=== PATIENT | male | born 1945 | race Caucasian/White ===

== ENCOUNTER → 2019-03-18 08:34 | Outpatient (CLI) | payer OTHER, SELFPAY ==
--- NOTE | 2019-03-18 | DI.CT.S_ITS ---
PROCEDURE: CT ABDOMEN PELVIS WO/W CON INDICATIONS: HEMATURIA TECHNIQUE: Optional 5 mm thick noncontrast images acquired from the diaphragm to the symphysis pubis. After the administration of intravenous contrast, 5 mm thick images acquired from the diaphragm to the symphysis pubis after a 10-minute delay. 2 mm thick coronal and sagittal reformats were then performed of the kidneys and ureters. For radiation dose reduction, the following was used: automated exposure control, adjustment of mA and/or kV according to patient size. COMPARISON: None. FINDINGS: Image quality: Excellent. Lung bases: Lung bases are clear. Heart size is normal. Urinary system: Right kidney: In the medullary portion of the kidney, at the lower pole, is a soft tissue density lesion measuring approximately 1.5 cm which enhances from 30 Hounsfield units to 60 Hounsfield units, possibly representing a small transitional cell carcinoma. No stones or hydronephrosis. Right ureter: Unremarkable. Left kidney: No stone, hydronephrosis, or mass. Left ureter: Unremarkable. Bladder: There is diffuse bladder wall thickening. There are multiple polypoid lesions extending into the lumen of the bladder. Off the left posterior superior wall is a 2.4 cm maximum diameter polypoid lesion. Off the right lateral wall is a 1 cm polypoid lesion. Off the dome, to the right of midline, is a possible 1.4 cm polypoid lesion. There are small bilateral posterior lateral bladder diverticuli. There are at least 3 on the right and one on the left. Other solid organs: Liver is normal in size and enhancement. Gallbladder is unremarkable. Biliary system is non dilated. Pancreas enhances normally. Spleen is normal in size and enhancement. No adrenal nodules. Peritoneum and bowel: Bowel loops demonstrate normal wall thickness and caliber. No free fluid or air. Nodes and vessels: No retroperitoneal or mesenteric adenopathy by size criteria. Aorta and inferior vena cava are normal in size. Abdominal wall: No ventral hernias. Pelvis: No pathologic free pelvic fluid. Small bilateral inguinal hernias containing fat. Prostate is enlarged. Bones: No suspicious bony lesions. No vertebral body compression fractures. IMPRESSION: 1. Question 1.5 cm transitional cell carcinoma of the lower pole of the right kidney. 2. Prostate enlargement, diffuse bladder wall thickening. 3. 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 4. Incidental note made of bilateral bladder diverticuli. Dictated by: Gil Jalloh M.D. on 03/18/2019 at 16:00 Approved by: Gil Jalloh M.D. on 03/18/2019 at 16:25
[2019-03-18 09:08] LABS: Blood Urea Nitrogen 17 mg/dL (9-20); Calcium 9.3 mg/dL (8.4-10.2); Carbon Dioxide 28 mmol/L (22-32); Chloride 103 mmol/L (98-107); Estimated Glomerular Filt Rate > 60.0 mL/min (>60); Glucose 98 mg/dL (80-110); HEMOLYSIS < 15 (0-50); Potassium 4.8 mmol/L (3.4-5.1); Sodium 139 mmol/L (137-145)
== END ==
PROVIDERS: Visit Provider Specialist
DX: R31.0 Gross hematuria (principal); N32.9 Bladder disorder, unspecified; N28.9 Disorder of kidney and ureter, unspecified; N40.0 Benign prostatic hyperplasia without lower urinary tract symptoms; N32.3 Diverticulum of bladder
CPT/HCPCS: 36415; 74178; 80048; Q9967

== ENCOUNTER → 2020-12-29 10:34 | Outpatient (CLI) | payer MEDICARE, OTHER, SELFPAY ==
--- NOTE | 2020-12-29 12:19 | DI.CT.S_ITS ---
PROCEDURE: CT ABDOMEN PELVIS W CON INDICATIONS: Left lower quadrant pain,Other chronic pain TECHNIQUE: After the administration of oral and intravenous contrast, 5 mm thick sections acquired from the diaphragms to the symphysis. 5 mm thick coronal and sagittal reformats were performed. For radiation dose reduction, the following was used: automated exposure control, adjustment of mA and/or kV according to patient size. COMPARISON: None. FINDINGS: Image quality: Excellent. ABDOMEN: Lung bases: Lung bases are clear. Heart size is normal. Solid organs: Liver is normal in size and enhancement. Gallbladder appears normal Biliary system is non-dilated. Pancreas enhances normally. Spleen is normal in size and enhancement. No adrenal nodules. Kidneys are normal in size and enhancement, without hydronephrosis. Peritoneum and bowel: Stomach, small bowel, and colon loops are normal in caliber and wall thickness. No free fluid or air. Nodes and vessels: No retroperitoneal or mesenteric adenopathy. Aorta and inferior vena cava are normal in caliber. Miscellaneous: No ventral hernias. PELVIS: Genitourinary: Bladder wall thickness is increased over the superior bladder margin and posteriorly, associated with what appears to be moderate enlargement of the prostate gland. No bladder calculus is found. Several scattered bladder wall diverticula are present, small in overall size.. Miscellaneous: No inguinal hernias or adenopathy. Bones: No suspicious bony lesions. No vertebral body compression fractures. Note is made of prior left hemipelvis reconstruction with transverse fixation screws and a vertically oriented fixation plate at the iliac bone internally. The superior fixation screw traverses only a thin portion of the iliac bone near the anterior sacroiliac border, and then traverses in the soft tissues in apposition to the external cortex of the iliac bone more posteriorly.. IMPRESSION: A source of current symptomatology is not seen. No visceral herniation is identified. No evidence of visceral trauma. Note is made of previously performed left iliac wing fracture fixation screws and plate. The superior vertically oriented fixation plate margin contains a long fixation screw that penetrates only a small portion of the iliac bone and then extends along the external cortex of the iliac bone more posteriorly into the soft tissues extending to slightly penetrate through the medial left gluteus musculature into the overlying subcutaneous fat. Dictated by: Darnell Allan M.D. on 12/29/2020 at 12:46 Approved by: Darnell Allan M.D. on 12/29/2020 at 12:53
== END ==
PROVIDERS: PCP Family Medicine; Referring Provider Surgery; Visit Provider Surgery
DX: R10.32 Left lower quadrant pain (principal); G89.29 Other chronic pain
CPT/HCPCS: 74177; Q9967

== ENCOUNTER → 2021-02-21 11:41 | Outpatient (CLI) | payer MEDICARE, OTHER, SELFPAY | PROVIDERS: PCP Family Medicine; Visit Provider Specialist | DX: N39.0 Urinary tract infection, site not specified (principal); R33.9 Retention of urine, unspecified; R97.20 Elevated prostate specific antigen [PSA]; Z80.42 Family history of malignant neoplasm of prostate; N52.9 Male erectile dysfunction, unspecified; N40.1 Benign prostatic hyperplasia with lower urinary tract symptoms; R33.8 Other retention of urine | CPT/HCPCS: 51798; 81002; 87077; 87086; 87186; 99214 ==

== ENCOUNTER → 2021-04-12 12:16 | Outpatient (CLI) | payer MEDICARE, OTHER, SELFPAY ==
[2021-04-12 20:43] LABS: COVID19 - ORCAS (NP or Nasal) Negative (Negative)
== END ==
PROVIDERS: PCP Family Medicine; Visit Provider Family Medicine
DX: Z20.822 Contact with and (suspected) exposure to COVID-19 (principal)
CPT/HCPCS: C9803; U0003

== ENCOUNTER → 2021-12-27 10:47 | Outpatient (CLI) | payer MEDICARE, OTHER, SELFPAY | PROVIDERS: PCP Family Medicine; Referring Provider Dermatology MOHS-Micrographic Surgery; Visit Provider Family Medicine | DX: T81.31XA Disruption of external operation (surgical) wound, not elsewhere classified, initial encounter (principal); S81.802A Unspecified open wound, left lower leg, initial encounter; R60.0 Localized edema; Z85.828 Personal history of other malignant neoplasm of skin | CPT/HCPCS: 11042; 93922; 99203; 99213 ==

== ENCOUNTER → 2021-12-28 09:00 | Outpatient (CLI) | payer MEDICARE, OTHER, SELFPAY ==
[2021-12-28 19:07] LABS: Add Manual Diff / Slide Review NO; Basophils Absolute Auto 100 /uL (0-100); Basophils Percent Auto 1.4 % (0-2); Eosinophils Absolute Auto 100 /uL (0-450); Eosinophils Percent Auto 2.6 % (2-4); Lymphocytes Absolute Auto 1400 /uL (1100-4500); Lymphocytes Percent Auto 28.6 % (25-40); Mean Corpuscular HGB Conc 34.1 % (30-36); Mean Corpuscular Hemoglobin 30.7 PG (26-34); Mean Corpuscular Volume 90.2 fL (80-100); Monocytes Absolute Auto 400 /uL (0-900); Monocytes Percent Auto 7.9 % (3-14); Neutrophils Absolute Auto 2800 /uL (1500-7000); Neutrophils Percent Auto 59.5 % (50-75); Platelet Count 237 X10^3/uL (150-400); Red Blood Cell Count 4.87 X10^6/uL (4.5-5.9); Red Cell Distribution Width 13.7 % (11.6-14.8); White Blood Cell Count 4.7 X10^3/uL (4.5-11.0)
[2021-12-28 19:08] LABS: Alanine Aminotransferase 20 IU/L (<50); Albumin 4.3 g/dL (3.5-5.0); Albumin Globulin Ratio 1.6 (1.0-2.8); Alkaline Phosphatase 67 U/L (38-126); Aspartate Aminotransferase 29 IU/L (17-59); BUN Creatinine Ratio 16.5 (6-22); Bilirubin Total 0.7 mg/dL (0.2-1.3); Blood Urea Nitrogen 18 mg/dL (9-20); Calcium 9.4 mg/dL (8.4-10.2); Carbon Dioxide 32 mmol/L (22-32); Chloride 106 mmol/L (98-107); Cholesterol 183 mg/dL (140-199); Estimated Glomerular Filt Rate > 60.0 mL/min (>60); Globulin 2.7 g/dL (1.7-4.1); Glucose 96 mg/dL (80-110); HDL Cholesterol 59 mg/dL (40-60); HEMOLYSIS < 15 (0-50); LDL Cholesterol Calculated 109 mg/dL (<100); Potassium 4.7 mmol/L (3.4-5.1); Sodium 142 mmol/L (137-145); Triglycerides 77 mg/dL (35-150)
[2021-12-28 19:35] LABS: Prostate Specific Antigen 7.83 ng/mL (0.10-4.00)
== END ==
PROVIDERS: PCP Family Medicine; Visit Provider Family Medicine
DX: N40.1 Benign prostatic hyperplasia with lower urinary tract symptoms (principal); E78.5 Hyperlipidemia, unspecified; I10 Essential (primary) hypertension; R33.8 Other retention of urine
CPT/HCPCS: 80053; 80061; 84153; 85025

== ENCOUNTER → 2022-01-03 11:06 | Outpatient (CLI) | payer MEDICARE, OTHER, SELFPAY | PROVIDERS: PCP Family Medicine; Referring Provider Family Medicine; Visit Provider Family Medicine | DX: T81.31XA Disruption of external operation (surgical) wound, not elsewhere classified, initial encounter (principal); S81.802A Unspecified open wound, left lower leg, initial encounter; R60.0 Localized edema; Z85.828 Personal history of other malignant neoplasm of skin | CPT/HCPCS: 11042 ==

== ENCOUNTER → 2022-01-17 10:54 | Outpatient (CLI) | payer MEDICARE, OTHER, SELFPAY | PROVIDERS: PCP Family Medicine; Referring Provider Family Medicine; Visit Provider Family Medicine | DX: T81.89XA Other complications of procedures, not elsewhere classified, initial encounter (principal); S81.802A Unspecified open wound, left lower leg, initial encounter; R60.0 Localized edema; Z85.828 Personal history of other malignant neoplasm of skin | CPT/HCPCS: 11042 ==

== ENCOUNTER → 2022-02-01 10:28 | Outpatient (CLI) | payer MEDICARE, OTHER, SELFPAY | PROVIDERS: PCP Family Medicine; Referring Provider Family Medicine; Visit Provider Family Medicine | DX: T81.89XA Other complications of procedures, not elsewhere classified, initial encounter (principal); S81.802A Unspecified open wound, left lower leg, initial encounter; R60.0 Localized edema; Z85.828 Personal history of other malignant neoplasm of skin | CPT/HCPCS: 11042; 99213 ==

== ENCOUNTER → 2022-02-13 14:17 | Outpatient (CLI) | payer MEDICARE, OTHER, SELFPAY | PROVIDERS: PCP Family Medicine; Referring Provider Family Medicine; Visit Provider Family Medicine | DX: Z09 Encounter for follow-up examination after completed treatment for conditions other than malignant neoplasm (principal); Z85.828 Personal history of other malignant neoplasm of skin; Z87.2 Personal history of diseases of the skin and subcutaneous tissue | CPT/HCPCS: 99212; 99213 ==

== ENCOUNTER → 2022-08-01 13:59 | Outpatient (CLI) | payer MEDICARE, OTHER, SELFPAY ==
[2022-08-01 20:56] LABS: Prostate Specific Antigen 9.26 ng/mL (0.10-4.00)
== END ==
PROVIDERS: PCP Family Medicine; Visit Provider Specialist
DX: R97.20 Elevated prostate specific antigen [PSA] (principal)
CPT/HCPCS: 84153

== ENCOUNTER → 2022-08-20 14:26 | Outpatient (CLI) | payer MEDICARE, OTHER, SELFPAY ==
[2022-08-22 06:38] LABS: PSA Free % 23.6 % (.)
== END ==
PROVIDERS: PCP Family Medicine; Visit Provider Specialist
DX: D30.3 Benign neoplasm of bladder (principal); N40.1 Benign prostatic hyperplasia with lower urinary tract symptoms; N52.9 Male erectile dysfunction, unspecified; R33.8 Other retention of urine; R33.9 Retention of urine, unspecified; R97.20 Elevated prostate specific antigen [PSA]; Z80.42 Family history of malignant neoplasm of prostate
CPT/HCPCS: 84153; 84154

== ENCOUNTER → 2022-08-29 08:58 | Outpatient (CLI) | payer MEDICARE, OTHER, SELFPAY | PROVIDERS: PCP Family Medicine; Visit Provider Specialist | DX: N40.1 Benign prostatic hyperplasia with lower urinary tract symptoms (principal); N13.8 Other obstructive and reflux uropathy; R33.9 Retention of urine, unspecified; R97.20 Elevated prostate specific antigen [PSA]; Z80.42 Family history of malignant neoplasm of prostate | CPT/HCPCS: 51798; 81002; 87086; 99215 ==

== ENCOUNTER → 2022-09-10 15:58 | Outpatient (CLI) | payer MEDICARE, OTHER, SELFPAY ==
--- NOTE | 2022-09-10 15:59 | DI.MRI.S_ITS ---
PROCEDURE: MR PELIS WO/W CON INDICATIONS: Elevated PSA TECHNIQUE: Coronal HASTE, axial T1 FSE with fat saturation, 3-plane nonbreath-hold T2 FSE. After the administration of contrast, dynamic axial, delayed axial and coronal VIBE or 2-D FLASH with fat saturation through the pelvis. Optional diffusion weighted imaging and ADC may be performed. COMPARISON: None. FINDINGS: Image quality: Diffusion weighted and dynamic contrast enhanced images are diagnostic. Prostate: Gland size is 7.8 x 6.2 x 5.9 cm; ellipsoid gland volume is 148 mL. The gland is diffusely heterogeneous with transition zone hypertrophy characteristic BPH. There is no dominant T2 hypointense lesion or strong restriction of diffusion. Subtle lesions are as follows. Lesion size(s): Lesion 1: 2.1 cm in oblique AP diameter measured on ADC map. Lesion 2: About 1.3 cm in transverse diameter measured on diffusion imaging. Lesion 3: About 9 mm in transverse diameter on T2 imaging Lesion location(s) (sector): Lesion 1: Right posterior transition zone at mid gland to apex. Lesion 2: Left posterior transition zone at the gland apex Lesion 3: Right posterior peripheral zone at the mid gland level Lesion description: Lesion 1: Indistinct area of low T2 signal, ovoid on ADC map. Lesion 2: Irregular area with indistinct margins Lesion 3: Indistinct margins, vaguely rounded on T2 imaging T2 weighted imaging (T2WI) morphology score: Lesion 1: Three Lesion 2: Three Lesion 3: Three Diffusion weighted imaging (DWI) morphology score: Lesion 1: Three Lesion 2: Three Lesion 3: Three Dynamic contrast enhancement (DCE): Lesion 1: Absent Lesion 2: Absent Lesion 3: Absent Lesion PI-RADS score: Lesion 1: PI-RADS three Lesion 2: PI-RADS three Lesion 3: PI-RADS three Genitourinary system: Several small posterolateral bladder diverticula. There is a wide necked anterior superior bladder diverticulum. The bladder wall has eccentric thickening along the right superior margin. There are no focal lesions however. Distal ureters are non distended. Bowel and peritoneum: No pathologic free pelvic fluid. Inferior colon and small bowel loops are normal in caliber. Nodes and vessels: 1.0 cm short axis right pelvic sidewall lymph node. There may be left pelvic sidewall adenopathy measuring about 9 mm short axis, though amidst susceptibility artifact. 9 mm lymph anterior to the pelvis to the left of midline. Iliac vessels are patent and of normal caliber. Soft tissues: No inguinal hernias. Bones: Left pelvic hardware results in left pelvic sidewall artifact. Nonetheless, there is partially imaged suspicious ovoid lesion in the left proximal femur. Probable Schmorl's nodes in the L4-5 endplates. IMPRESSION: 1. Diffusely enlarged prostate gland with heterogeneous signal. 2. Three equivocal PI-RADS three areas are described as above. 3. There are borderline pelvic lymph nodes as described. 4. Incompletely imaged left proximal femur lesion. Consider further evaluation to document true lesion presents. Dictated by: Sarika Ely M.D. on 09/10/2022 at 18:06 Approved by: Sarika Ely M.D. on 09/10/2022 at 18:34
== END ==
PROVIDERS: PCP Family Medicine; Referring Provider Specialist; Visit Provider Specialist
DX: N40.1 Benign prostatic hyperplasia with lower urinary tract symptoms (principal); R33.8 Other retention of urine; R33.9 Retention of urine, unspecified; N32.3 Diverticulum of bladder; M89.9 Disorder of bone, unspecified; N52.9 Male erectile dysfunction, unspecified; R97.20 Elevated prostate specific antigen [PSA]; Z80.42 Family history of malignant neoplasm of prostate
CPT/HCPCS: 72197; A9579

== ENCOUNTER → 2023-01-31 10:59 | Outpatient (CLI) | payer MEDICARE, OTHER, SELFPAY ==
[2023-01-31 19:39] LABS: Cholesterol 151 mg/dL (140-199); HDL Cholesterol 36 mg/dL (40-60); LDL Cholesterol Calculated 89 mg/dL (<100); Triglycerides 132 mg/dL (35-150)
== END ==
PROVIDERS: PCP Family Medicine; Visit Provider Family Medicine
DX: E78.5 Hyperlipidemia, unspecified (principal)
CPT/HCPCS: 80061

== ENCOUNTER → 2023-03-05 09:26 | Outpatient (CLI) | payer MEDICARE, OTHER, SELFPAY ==
[2023-03-05 19:54] LABS: Add Manual Diff / Slide Review NO; Basophils Absolute Auto 100 /uL (0-100); Eosinophils Absolute Auto 200 /uL (0-450); Eosinophils Percent Auto 2.8 % (2-4); Hematocrit 43.3 % (41-53); Hemoglobin 15.1 g/dL (13.5-17.5); Lymphocytes Absolute Auto 1400 /uL (1100-4500); Lymphocytes Percent Auto 24.3 % (25-40); Mean Corpuscular HGB Conc 34.8 % (30-36); Mean Corpuscular Hemoglobin 30.2 PG (26-34); Mean Corpuscular Volume 86.6 fL (80-100); Monocytes Absolute Auto 500 /uL (0-900); Monocytes Percent Auto 7.9 % (3-14); Neutrophils Absolute Auto 3700 /uL (1500-7000); Platelet Count 278 X10^3/uL (150-400); Red Cell Distribution Width 13.1 % (11.6-14.8); White Blood Cell Count 5.7 X10^3/uL (4.5-11.0)
[2023-03-05 19:57] LABS: BUN Creatinine Ratio 17.9 (6-22); Blood Urea Nitrogen 20 mg/dL (9-20); Calcium 9.8 mg/dL (8.4-10.2); Carbon Dioxide 27 mmol/L (22-32); Chloride 102 mmol/L (98-107); Cholesterol 148 mg/dL (140-199); Estimated Glomerular Filt Rate > 60 mL/min (>60); Glucose 90 mg/dL (80-110); HDL Cholesterol 38 mg/dL (40-60); HEMOLYSIS 22 (0-50); LDL Cholesterol Calculated 88 mg/dL (<100); Potassium 4.3 mmol/L (3.4-5.1); Sodium 139 mmol/L (137-145); Triglycerides 112 mg/dL (35-150); Uric Acid 5.5 mg/dL (3.5-8.5)
[2023-03-05 20:13] LABS: Prostate Specific Antigen Scrn 9.48 ng/mL (0.1-4.0)
== END ==
PROVIDERS: PCP Family Medicine; Visit Provider Family Medicine
DX: I10 Essential (primary) hypertension (principal); Z12.5 Encounter for screening for malignant neoplasm of prostate; E78.5 Hyperlipidemia, unspecified; M10.9 Gout, unspecified; R97.20 Elevated prostate specific antigen [PSA]
CPT/HCPCS: 80048; 80061; 84550; 85025; G0103

== ENCOUNTER → 2024-02-04 10:24 | Outpatient (CLI) | payer MEDICARE, OTHER, SELFPAY ==
[2024-02-04 19:14] LABS: Add Manual Diff / Slide Review NO; Basophils Absolute Auto 0 /uL (0-100); Basophils Percent Auto 0.8 % (0-2); Eosinophils Absolute Auto 200 /uL (0-450); Eosinophils Percent Auto 2.9 % (2-4); Hematocrit 42.9 % (41-53); Hemoglobin 14.8 g/dL (13.5-17.5); Lymphocytes Absolute Auto 1200 /uL (1100-4500); Lymphocytes Percent Auto 19.7 % (25-40); Mean Corpuscular HGB Conc 34.5 % (30-36); Mean Corpuscular Hemoglobin 30.4 PG (26-34); Mean Corpuscular Volume 88.1 fL (80-100); Monocytes Absolute Auto 600 /uL (0-900); Monocytes Percent Auto 10.2 % (3-14); Neutrophils Absolute Auto 3900 /uL (1500-7000); Neutrophils Percent Auto 66.4 % (50-75); Platelet Count 220 X10^3/uL (150-400); Red Blood Cell Count 4.87 X10^6/uL (4.5-5.9); Red Cell Distribution Width 14.3 % (11.6-14.8); White Blood Cell Count 5.9 X10^3/uL (4.5-11.0)
[2024-02-04 19:15] LABS: Alanine Aminotransferase 33 IU/L (<50); Albumin 4.2 g/dL (3.5-5.0); Albumin Globulin Ratio 1.6 (1.0-2.8); Alkaline Phosphatase 64 U/L (38-126); Aspartate Aminotransferase 34 IU/L (17-59); BUN Creatinine Ratio 20.2 (6-22); Bilirubin Total 0.8 mg/dL (0.2-1.3); Blood Urea Nitrogen 20 mg/dL (9-20); Calcium 9.7 mg/dL (8.4-10.2); Carbon Dioxide 24 mmol/L (22-32); Chloride 109 mmol/L (98-107); Cholesterol 130 mg/dL (140-199); Estimated Glomerular Filt Rate > 60 mL/min (>60); Globulin 2.6 g/dL (1.7-4.1); Glucose 100 mg/dL (80-110); HDL Cholesterol 47 mg/dL (40-60); HEMOLYSIS < 15 (0-50); LDL Cholesterol Calculated 66 mg/dL (<100); Potassium 4.4 mmol/L (3.4-5.1); Sodium 140 mmol/L (137-145); Total Protein 6.8 g/dL (6.3-8.2); Triglycerides 84 mg/dL (35-150)
[2024-02-04 19:45] LABS: Prostate Specific Antigen 10.4 ng/mL (0.10-4.00)
== END ==
PROVIDERS: Specialist; PCP Family Medicine; Visit Provider Family Medicine
DX: M1A.00X0 Idiopathic chronic gout, unspecified site, without tophus (tophi) (principal); I10 Essential (primary) hypertension; N40.1 Benign prostatic hyperplasia with lower urinary tract symptoms; E78.5 Hyperlipidemia, unspecified; R97.20 Elevated prostate specific antigen [PSA]
CPT/HCPCS: 80053; 80061; 84153; 85025

== ENCOUNTER → 2024-03-10 09:25 | Outpatient (CLI) | payer MEDICARE, OTHER, SELFPAY | PROVIDERS: PCP Family Medicine; Visit Provider Specialist | DX: R33.9 Retention of urine, unspecified (principal); N40.1 Benign prostatic hyperplasia with lower urinary tract symptoms | CPT/HCPCS: 87077; 87086; 87186 ==

== ENCOUNTER → 2024-05-06 11:11 | Outpatient (CLI) | payer MEDICARE, OTHER, SELFPAY ==
--- NOTE | 2024-05-06 11:12 | DI.MRI.S_ITS ---
PROCEDURE: MR LUMBAR SPINE WO CON INDICATIONS: Lumbar radiculopathy with pain radiating to the left side TECHNIQUE: Noncontrast sagittal T1 spin echo and T2 fast echo, sagittal STIR, and T2 fast spin echo through the lumbar spine. In cases with scoliosis, additional coronal T2 fast spin echo may be performed. COMPARISON: [facility], CT, CT ABDOMEN PELVIS W CON, 12/29/2020, 11:46. FINDINGS: Image quality: Diagnostic, with note made of motion artifact. Alignment and Curvature: There is mild retrolisthesis seen at the L4-L5 level. Bone Marrow: Marrow is of normal overall signal. No acute vertebral body compression fractures. Spinal Cord: Conus medullaris terminates at the L1-L2 level. Visualized cord demonstrates normal signal and size. Paraspinous Soft Tissues: No paravertebral masses. T12-L1: The disc height and disk signal are relatively well-preserved. Mild generalized disc bulge is seen, which is slightly eccentric to the left. There is mild left-sided and no right-sided neural foraminal narrowing. No central canal narrowing is seen. L1-L2: The disc height and disk signal are well-preserved. Mild generalized disc bulge is seen. My right facet hypertrophy is seen, right worse than left. Moderate bilateral neural foraminal narrowing is seen. Minimal central canal narrowing is seen. L2-L3: The disc height and disk signal are well-preserved. Moderate generalized disc bulge is seen. There is a central disc protrusion. Moderate to prominent facet hypertrophy is seen. Associated hypertrophy of the ligamentum flavum can be seen. There is at least moderate bilateral neural foraminal narrowing seen. Moderate to severe central canal narrowing is seen, as on series 5, image 17. L3-L4: Mild loss of disc height is seen. Loss of disc signal is seen. At least moderate disc bulge is seen. There is a central disc protrusion. Mild to moderate facet hypertrophy can be seen. There is moderate to severe right-sided and at least moderate left-sided neural foraminal narrowing. There is a degree of compression seen upon the exiting nerve roots. Moderate to severe central canal narrowing is seen, as on series 5, image 22. L4-L5: Bula-cn-hriponxs loss of disc height and disc signal can be seen. Moderate generalized disc bulge is seen. There is a superimposed central disc protrusion. There is a focal annular fissure seen posteriorly. Moderate facet joint hypertrophy is seen. There is at least moderate bilateral neural foraminal narrowing seen. There is a degree of compression seen upon the exiting nerve roots. Moderate central canal narrowing is seen. L5-S1: The disc height is well-preserved. Loss of disc signal is seen at this level. Moderate disc bulge is seen, which is eccentric to the left. Moderate facet joint hypertrophy is seen. There is moderate right-sided and moderate to severe left-sided neural foraminal narrowing. There is a degree of compression seen upon the exiting left L5 nerve root. No significant central canal narrowing is seen. IMPRESSION: Multiple levels of lumbar spine degenerative change can be seen, which are overall worst within the mid lumbar spine. Moderate to severe central canal narrowing can be seen at L2-L3 and L3-L4. Several sites of significant neural foraminal narrowing can be seen, with associated exiting nerve root compression. Dictated by: Dileep Daniels M.D. on 05/06/2024 at 17:53 Approved by: Dileep Daniels M.D. on 05/06/2024 at 17:57
--- NOTE | 2024-05-06 11:12 | DI.MRI.S_ITS ---
PROCEDURE: MR FEMUR LT WO/W CON INDICATIONS: F/U MR 09/08. Lesion proximal femur. Elevated PSA TECHNIQUE: Noncontrast coronal T1 spin echo and STIR, sagittal T1 spin echo with fat saturation and STIR, axial T1 spin echo and T2 fast spin echo with fat saturation. After the administration of contrast, axial/sagittal/coronal T1 spin echo with fat saturation through the left femur. COMPARISON: [facility], MR, MR PELVIS WO/W CON, 09/10/2022, 16:52. [facility], MR, MR LUMBAR SPINE WO CON, 05/06/2024, 11:24. [facility] ([place]), CR, XR KNEE LT 3V, 02/11/2024, 11:57. FINDINGS: Image quality: Excellent. Bones: Susceptibility artifacts are noted from surgical hardware in left acetabulum which obscures evaluation in medial weight-bearing portion of left femoral head. Mildly heterogeneous marrow signal throughout included portion of bony pelvis and bilateral femoral shafts and likely represent hematopoietic marrow. No discrete intraosseous lesion is identified. There is no area of abnormal intraosseous enhancement. Moderate left hip joint osteoarthritic changes are seen. No definite avascular necrosis of femoral head. There is no cortical erosion or abnormal periosteal reaction. Soft tissues: Small lymph nodes are seen in left inguinal region. No abnormally enlarged lymph nodes are seen in left hemipelvis and left thigh. No enhancing soft tissue mass or discrete drainable fluid collection is noted. The scanned muscles demonstrate normal overall bulk and internal signal. IMPRESSION: 1. Diffusely heterogeneous marrow signal throughout included portion of bony pelvis and may represent hematopoietic marrow. There is no discrete intraosseous lesion or abnormal intraosseous enhancement. No cortical erosion, destruction or abnormal periosteal reaction is seen. 2. Postsurgical changes in left hemipelvis with susceptibility artifacts. Asymmetric moderate left hip joint osteoarthritis, no definite avascular necrosis of femoral head. No acute fracture or dislocation. 3. No enhancing soft tissue mass is seen in left thigh a left hemipelvis. No drainable fluid collection. No muscle signal abnormalities. No area of abnormal intramuscular enhancement. Dictated by: Barrington Talbot M.D. on 05/06/2024 at 16:21 Approved by: Barrington Talbot M.D. on 05/06/2024 at 16:31
== END ==
LOC: MRI 11:12
PROVIDERS: PCP Family Medicine; Referring Provider Family Medicine; Visit Provider Family Medicine
DX: M16.12 Unilateral primary osteoarthritis, left hip (principal); M89.9 Disorder of bone, unspecified; M47.26 Other spondylosis with radiculopathy, lumbar region; M47.27 Other spondylosis with radiculopathy, lumbosacral region; M48.061 Spinal stenosis, lumbar region without neurogenic claudication; M48.07 Spinal stenosis, lumbosacral region
CPT/HCPCS: 72148; 73720; A9579

== ENCOUNTER → 2024-10-28 09:22 | Outpatient (CLI) | payer MEDICARE, OTHER, SELFPAY ==
[2024-10-28 20:16] LABS: Cholesterol 125 mg/dL (140-199); HDL Cholesterol 48 mg/dL (40-60); LDL Cholesterol Calculated 63 mg/dL (<100); Triglycerides 68 mg/dL (35-150)
[2024-10-29 12:55] LABS: BUN Creatinine Ratio 17.3 (6-22); Blood Urea Nitrogen 22 mg/dL (9-20); Estimated Glomerular Filt Rate 58 mL/min (>60)
== END ==
PROVIDERS: PCP Family Medicine; Visit Provider Family Medicine
DX: E78.5 Hyperlipidemia, unspecified (principal); R97.20 Elevated prostate specific antigen [PSA]; I10 Essential (primary) hypertension; N40.1 Benign prostatic hyperplasia with lower urinary tract symptoms
CPT/HCPCS: 80061; 82565; 84153; 84520

== ENCOUNTER 2025-01-27 09:07 | Day surgery (SDC) | payer MEDICARE, OTHER, SELFPAY ==
--- NOTE | 2025-01-27 | PATH_ITS ---
[facility] Accession Number: [id number] No. of containers..02 Tissue . 01 Material submitted: . PART A: rectum - RECTAL POLYP PART B: colon - 30 . 01 Diagnosis: A. RECTAL POLYP: Tubular adenoma. . B. COLON POLYP AT 30 CM: Polypoid colonic mucosa with focal collection of mature adipocytes. See comment. . MRV 01/29/2025 1536 Local . 01 Comment: B. The findings could be compatible with lipoma in the appropriate clinical context. . 01 Electronically signed: . Astrid Zamudio MD, Pathologist NPI- [id number] . 01 Gross description: . Part A: RECTAL POLYP: Received in formalin is 1 fragment of stephens soft tissue measuring 0.8 x 0.6 x 0.5 cm. Specimen is sectioned and submitted in its entirety in 1 cassette. Part B: 30: Received in formalin is 1 fragment(s) of stephens, soft tissue measuring 0.6 x 0.2 x 0.2 cm submitted entirely in 1 cassette(s) /[place] 01/28/20252003 Local . 01 Pathologist provided ICD-10: D12.8, D12.6 . 01 CPT . 867521, [id number] Specimen Comment: A courtesy copy of this report has been sent to [phone] Performed at: [address] [facility] [address], [place], [place] [id number] MD Amadou Jane MD Phone: [phone]
[2025-01-27 10:31] VITALS: BP 154/76; PULSE 59; RESP 16; TEMP 36.1; O2SAT 99
--- NOTE | 2025-01-27 10:56 | PM.HP.IH.1 ---
History of Present Illness History of Present Illness Date Patient Seen: 01/27/25 Chief complaint: [facility]ening [facility] Medical History Urinary retention BPH loc w urin obs/LUTS H/O fracture of pelvis Erectile dysfunction Family history of prostate cancer Elevated PSA Gout Elevated PSA Family history of malignant neoplasm of prostate Surgical History S/P bilateral inguinal herniorrhaphy H/O prostate biopsy H/O lateral meniscus repair of left knee H/O hernia repair Social History Smoking Status: Never smoker Meds Home Medications and Allergies Home Medications Medication Instructions Recorded Confirmed Type straight catheter #1 ea 06/23/20 10/29/24 History rosuvastatin 20 mg tablet (Crestor) 20 mg PO DAILY #90 tabs 02/04/24 10/29/24 Rx calcium carbonate (Calcium 600) 600 mg PO DAILY 02/25/24 10/29/24 History multivitamin 1 tab PO DAILY 02/25/24 10/29/24 History allopurinol 100 mg tablet 200 mg (2 x 100 mg) PO DAILY #180 08/17/24 10/29/24 Rx tabs sildenafil 100 mg tablet 100 mg PO DAILY PRN sexual 10/29/24 10/29/24 Rx activity #30 tabs sodium,potassium,mag sulfates 17.5 See Rx Instructions PO .COMPLEX 12/03/24 Rx gram-3.13 gram-1.6 gram oral soln #354 mL (Suprep Bowel Prep Kit) finasteride 5 mg tablet 5 mg PO DAILY #90 tabs 01/11/25 Rx gabapentin 100 mg capsule 100 - 300 mg (1 - 3 x 100 mg) PO 01/13/25 Rx BEDTIME #90 caps Allergies Allergy/AdvReac Type Severity Reaction Status Date / Time No Known Drug Allergies Allergy Verified 10/29/24 11:11 Exam Vital Signs (past 8 hours): - 01/27/25 10:31 Temperature 97.0 F L Pulse Rate 59 L Respiratory Rate 16 Blood Pressure 154/76 H Pulse Oximetry 99 Oxygen Delivery Method Room Air Oxygen Delivery Method Room Air Narrative Exam Narrative: Oropharynx free of lesions Chest clear to auscultation percussion Cardiac exam reveals no S3 or murmur Assessment & Plan Assessment & Plan narrative: Low risk follow-up screening colonoscopy had an 8-10 year interval. Asymptomatic. Risks, benefits, alternatives have been explained. Time-Based Coding :: [TOTAL MINUTES] spent with patient and on the chart (including review of chart, obtaining history, exam, reviewing outside data, placing orders, documenting exam and treatment plan, and counseling patient) on [DATE]. 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
--- NOTE | 2025-01-27 10:58 | PM.OP.COLON ---
Operative Date/Time/Diagnoses Date of procedure: 01/27/25 Pre-op diagnosis: See indication and findings Procedure & Clinicians Study performed: Colonoscopy Same procedure as scheduled: Yes Indications: Screening Surgeon: Buster Mccormick Procedure Notes Procedure in detail: After informed consent was obtained the patient was placed in left lateral decubitus position. The video colonoscope was introduced the rectum slowly advanced cecum. Preparation was good. On slow withdrawal mucosa was carefully examined. The scope was removed. The patient tolerated procedure well. Blood loss none Complications none Sedation mac Findings 1. Very difficult colonoscopy with multiple loops. Unfortunately, just his visualizing the cecum 1 of the guidewires broke in the scope. We had a reasonable view of the colon on withdrawal the preparation was not fabulous. 2. 4 mm polyp at 30 cm 3. Large 15 mm pedunculated polyp in the rectum. The stalk was injected with with epinephrine [id number] 2 cc and using Erbe electrocautery and was resected at the level of the stalk. No complications were noted. Given the scope failure and this large polyp the patient should have follow-up colonoscopy within 2-3 years as dictated by pathology
[2025-01-27] MEDS: EPINEPHrine 1 MG/ML IRR (11:58)
[2025-01-27] MEDS: LACTATED RINGERS 1,000 ML 42 ML IV (12:00)
[2025-01-27] MEDS: SODIUM CHLORIDE 0.9% FLUSH 10 ML IV (12:01)
[2025-01-27 12:25] VITALS: BP 110/58; PULSE 53; RESP 13; TEMP 36.1; O2SAT 95
[2025-01-27 12:30] VITALS: BP 119/66; PULSE 50; RESP 12; O2SAT 97
[2025-01-27 12:35] VITALS: BP 124/67; PULSE 45; RESP 12; TEMP 36.1; O2SAT 98
[2025-01-27 12:41] VITALS: BP 133/70; PULSE 52; RESP 18; TEMP 36.1; O2SAT 100
== END 2025-01-27 13:08 | disposition home or self-care (01) ==
PROVIDERS: PCP Family Medicine; Referring Provider Internal Medicine Gastroenterology; Visit Provider Internal Medicine Gastroenterology
PROC: 0DJD8ZZ Inspection of Lower Intestinal Tract, Via Natural or Artificial Opening Endoscopic (ICD-10-PCS; CPT 45378; principal; 2025-01-27 10:30)
DX: Z12.11 Encounter for screening for malignant neoplasm of colon (principal); D12.8 Benign neoplasm of rectum; K63.5 Polyp of colon
CPT/HCPCS: 45390; J0171; J2704

== ENCOUNTER → 2025-01-29 11:06 | Outpatient (CLI) | payer MEDICARE, OTHER, SELFPAY ==
[2025-01-29 18:11] LABS: Add Manual Diff / Slide Review NO; Basophils Absolute Auto 0 /uL (0-100); Basophils Percent Auto 0.7 % (0-2); Eosinophils Absolute Auto 100 /uL (0-450); Eosinophils Percent Auto 1.4 % (2-4); Hematocrit 43.6 % (41-53); Hemoglobin 14.9 g/dL (13.5-17.5); Lymphocytes Absolute Auto 1100 /uL (1100-4500); Lymphocytes Percent Auto 19.9 % (25-40); Mean Corpuscular HGB Conc 34.1 % (30-36); Mean Corpuscular Hemoglobin 29.9 PG (26-34); Mean Corpuscular Volume 87.6 fL (80-100); Monocytes Absolute Auto 500 /uL (0-900); Monocytes Percent Auto 9.1 % (3-14); Neutrophils Absolute Auto 3900 /uL (1500-7000); Neutrophils Percent Auto 68.9 % (50-75); Platelet Count 247 X10^3/uL (150-400); Red Blood Cell Count 4.98 X10^6/uL (4.5-5.9); Red Cell Distribution Width 13.8 % (11.6-14.8); White Blood Cell Count 5.6 X10^3/uL (4.5-11.0)
[2025-01-29 18:12] LABS: BUN Creatinine Ratio 16.2 (6-22); Blood Urea Nitrogen 18 mg/dL (9-20); Carbon Dioxide 25 mmol/L (22-32); Chloride 104 mmol/L (98-107); Estimated Glomerular Filt Rate > 60 mL/min (>60); Glucose 91 mg/dL (80-110); HEMOLYSIS 16 (0-50); Potassium 4.2 mmol/L (3.4-5.1); Sodium 140 mmol/L (137-145)
[2025-01-29 18:43] LABS: Prostate Specific Antigen 5.09 ng/mL (0.10-4.00)
== END ==
PROVIDERS: PCP Family Medicine; Visit Provider Family Medicine
DX: R97.20 Elevated prostate specific antigen [PSA] (principal); N40.1 Benign prostatic hyperplasia with lower urinary tract symptoms; E78.5 Hyperlipidemia, unspecified; I10 Essential (primary) hypertension
CPT/HCPCS: 80048; 84153; 85025

== ENCOUNTER → 2025-05-12 11:25 | Outpatient (CLI) | payer MEDICARE, OTHER, SELFPAY | PROVIDERS: PCP Family Medicine; Visit Provider Urology | DX: N40.1 Benign prostatic hyperplasia with lower urinary tract symptoms (principal); R33.9 Retention of urine, unspecified; R97.20 Elevated prostate specific antigen [PSA] | CPT/HCPCS: 51798; 81002; 87077; 87086; 87186; 99213 ==

== ENCOUNTER → 2025-06-16 11:39 | Outpatient (CLI) | payer MEDICARE, OTHER, SELFPAY | PROVIDERS: PCP Family Medicine; Visit Provider Urology | DX: N40.1 Benign prostatic hyperplasia with lower urinary tract symptoms (principal); R33.9 Retention of urine, unspecified | CPT/HCPCS: 87077; 87086 ==